=== PATIENT | female | born 1975 | race Two or more races ===

== ENCOUNTER 2020-11-26 07:41 | Day surgery (SDC) | payer OTHER ==
[2020-11-26] MEDS ORDERED: IBU600 MG PO (10:49)
== END 2020-11-26 16:40 | disposition home or self-care (01) ==
LOC: CIR.AMB 07:41
PROVIDERS: ATTEND Obstetrics & Gynecology Gynecology
DX: N92.1 Excessive and frequent menstruation with irregular cycle (principal); Z20.822 Contact with and (suspected) exposure to COVID-19